=== PATIENT | female | born 1985 | race African-American/Black ===

== ENCOUNTER 2025-08-11 10:20 | Emergency (ER) | payer MEDICAID, OTHER ==
[~2025-08-11] VITALS: Ht 160 cm; Wt 93.2 kg
--- NOTE | 2025-08-11 10:44 | ED.PDOC ---
History of Present Illness HPI Comments This is a 40 year old female presenting to the ED with chief complaint of high blood pressure. Patient reports that she has been experiencing more elevated than usual blood pressure over the past 3 days with associated bilateral leg swelling for the first 2 days before resolving. Patient relays that she has had increased salt intake due to the holidays, but has continued to take her Amlodipine and Hydrochlorothiazide daily. Patient notes she took her medication today and at home her last BP was 159/103. Patient denies any chest pain, SOB, dizziness, N/V, fever, headache, or syncope. Chief Complaint: High Blood Pressure Time Seen by MD: 10:31 Primary Care Provider: DR EDWARDS Reviewed Notes: Nurses Notes, Medications, Allergies Allergies: Uncoded Allergies: PHENTAMINE (Allergy, Severe, 08/11/25) RASH, PALPITATIONS Information Source: Patient Mode of Arrival: Ambulatory Severity: Moderate Timing: Days Duration: Since onset Prehospital treatment: None Medication Refill: For: Hypertension Past Medical History PAST MEDICAL HISTORY: Asthma, DM, HTN Surgical History: Denies all surgeries MAIL DISTRIBUTION CLERK History: No Pertinent MAIL DISTRIBUTION CLERK History Family History Family History: Reviewed,noncontributory to illness Social History Smoker: Non-Smoker Alcohol: Denies ETOH Use Drugs: Denies Drug Use Lives In: Home Constitutional: denies: chills, diaphoresis, fatigue, fever, malaise, sweats, weakness, others EENTM: denies: blurred vision, double vision, ear bleeding, ear discharge, ear drainage, ear pain, ear ringing, eye pain, eye redness, hearing loss, mouth pain, mouth swelling, nasal discharge, nose bleeding, nose congestion, nose pain, photophobia, tearing, throat pain, throat swelling, voice changes, others Respiratory: denies: cough, hemoptysis, orthopnea, SOB at rest, shortness of breath, SOB with excertion, stridor, wheezing, others Cardiovascular: reports: edema; denies: chest pain, dizzy spells, diaphoresis, Dyspnea on exertion, irregular heart beat, left arm pain, lightheadedness, palpitations, PND, syncope, others Gastrointestinal: denies: abdomen distended, abdominal pain, blood streaked bowels, constipated, diarrhea, dysphagia, difficulty swallowing, hematemesis, melena, nausea, poor appetite, poor fluid intake, rectal bleeding, rectal pain, vomiting, others Genitourinary: denies: abnormal vagina bleeding, burning, dyspareunia, dysuria, flank pain, frequency, hematuria, incontinence, pain, , vagina discharge, urgency, others Neurological: denies: dizziness, fainting, headache, left sided numbness, left sided weakness, numbness, paresthesia, pre-existing deficit, right sided numbness, right sided weakness, seizure, speech problems, tingling, tremors, weakness, others Musculoskeletal: denies: back pain, gout, joint pain, joint swelling, muscle pain, muscle stiffness, neck pain, others Integumetry: denies: bruises, change in color, change in hair/nails, dryness, laceration, lesions, lumps, rash, wounds, others Allergic/Immunocompromised: denies: Difficulty Healing, Frequent Infections, Hives, Itching, others Hematologic/Lymphatic: denies: anemia, blood clots, easy bleeding, easy bruising, swollen glands, others Endocrine: denies: excessive hunger, excessive sweating, excessive thirst, excessive urination, flushing, intolerance to cold, intolerance to heat, unexplained weight gain, unexplained weight loss, others Psychiatric: denies: anxiety, bipolar disorder, depression, hopeless, panic disorder, schizophrenia, sleepless, suicidal, others All Other Systems: Reviewed and Negative Physical Exam General Appearance: No Apparent Distress, Normal HEENT: Normal ENT Inspection, Pharynx Normal, TMs Normal Neck: Full Range of Motion, Non-Tender, Normal, Normal Inspection Respiratory: Chest Non-Tender, Lungs Clear, No Accessory Muscle Use, No Respiratory Distress, Normal Breath Sounds Cardiovascular: No JVD, No Murmur, No Gallop, Normal Peripheral Pulses, Regular Rate/Rhythm, Other (trace lower extremity edema) Breast Exam: Deferred Gastrointestinal: No Organomegaly, Non Tender, No Pulsatile Mass, Normal Bowel Sounds, Soft Genitalia: Deferred Pelvic: Deferred Rectal: Deferred Extremities: No calf tenderness, Normal capillary refill, Normal inspection, Normal range of motion, Non-tender, No pedal edema Musculoskeletal : Apperance: Normal Neurologic: Alert, fishing manager II-XII nml as Tested, No Motor Deficits, Normal Affect, Normal Mood, No Sensory Deficits Cerebellar Function: Normal Reflexes: Normal Skin: Dry, Normal Color, Warm Lymphatic: No Adenopathy Was a procedure done? Was a procedure done?: No Differential Dx Considerations may include: Pulmonary vascular congestion vs new onset heart failure vs increased salt intake X-Ray, Labs, Meds, VS Vital Signs Date Time Temp Pulse Resp B/P (MAP) Pulse Ox O2 Delivery O2 Flow Rate FiO2 08/11/25 12:12 98.3 73 16 143/86 (105) 100 98.3 08/11/25 10:22 98.0 84 15 143/96 98 98.0 Lab Test 08/11/25 10:53 Range/Units White Blood Count 7.2 4.4-10.8 10^3/uL Red Blood Count 5.26 H 4.0-5.20 10^6/uL Hemoglobin 10.0 L 12.2-16.2 g/dL Hematocrit 33.0 L 36.0-46.0 % Mean Corpuscular Volume 62.8 L 80.0-100.0 fL Mean Corpuscular Hemoglobin 19.1 L 28.0-32.0 pg Mean Corpuscular Hemoglobin Concent 30.4 L 32.0-36.0 g/dL Red Cell Distribution Width 17.5 H 11.8-14.3 % Platelet Count 429 140-450 10^3/uL Mean Platelet Volume 7.8 6.9-10.8 fL Neutrophils (%) (Auto) 55.8 37.0-80.0 % Lymphocytes (%) (Auto) 32.9 10.0-50.0 % Monocytes (%) (Auto) 6.2 0.0-12.0 % Eosinophils (%) (Auto) 4.0 0.0-7.0 % Basophils (%) (Auto) 1.1 0.0-2.0 % Neutrophils # (Auto) 4.0 1.6-8.6 10 ^3/uL Lymphocytes # (Auto) 2.4 0.4-5.4 10 ^3/uL Monocytes # (Auto) 0.5 0-1.3 10 ^3/uL Eosinophils # (Auto) 0.3 0-0.8 10 ^3/uL Basophils # (Auto) 0.1 0-0.2 10 ^3/uL Nucleated Red Blood Cells 0.2 % Platelet Estimate Pending Sodium Level 139 136-145 mmol/L Potassium Level 3.3 L 3.5-5.1 mmol/L Chloride Level 101 98-107 mmol/L Carbon Dioxide Level 30 20-31 mmol/L Anion Gap 8 5-15 Blood Urea Nitrogen 6 L 9-23 mg/dL Creatinine 0.66 0.550-1.02 mg/dL Glomerular Filtration Rate Calc 113 >90 mL/min BUN/Creatinine Ratio 9.1 L 10.0-20.0 Serum Glucose 97 74-106 mg/dL Calcium Level 9.7 8.7-10.4 mg/dL Total Bilirubin 1.0 0.2-1.0 mg/dL Aspartate Amino Transferase (AST) 18 13-40 U/L Alanine Aminotransferase (ALT) 14 7-40 U/L Alkaline Phosphatase 114 46-116 U/L Troponin I High Sensitivity 16 </=34 ng/L B-Type Natriuretic Peptide 16.32 0-100 pg/mL Total Protein 8.4 H 5.7-8.2 g/dL Albumin 4.7 3.2-4.8 g/dL [place] [id number] Ph: [phone] DIAGNOSTIC IMAGING Diagnostic Imaging Report : [id number] Signed PATIENT: TOMMY BOOTHEACCT: [id number] UNIT: [id number] : 1985 LOC: ER ROOM / BED: / AGE / SEX: 40 / F ADM STATUS: REG ER SERVICE 1047 ORDERING PHYSICIAN: MELANIA MAS MD PROCEDURE(s): CXR1 - CHEST XRAY 1 VIEW REASON: peripheral edema, eval for cardiomegaly ORDER NUMBER(s): [id number], ACCESSION NUMBER(s): [id number] CHEST RADIOGRAPH Indication: peripheral edema, eval for cardiomegaly Technique: Single frontal view of the chest was obtained COMPARISON: None FINDINGS: Lines and Tubes: None Lungs: Increased interstital prominence. This may represent pulmonary vascular congestion and/or viral pneumonia. Pleura: No effusion.No pneumothorax. Cardiomediastinal contours: Unremarkable Bones: Unremarkable IMPRESSION: Increased interstital prominence. This may represent pulmonary vascular congestion and/or viral pneumonia. ATED BY: DELIO SALINAS MD DICTATED DATE/TIME: 08/11/25 1130 SIGNED BY: DELIO SALINAS MD SIGNED DATE/TIME: 08/11/251129 CC: Images Reviewed?: Images reviewed and evaluated by me Time of 1ST Reevaluation: 11:31 Reevaluation 1ST: Improved Patient Education/Counseling: Diagnosis, Treatment Family Education/Counseling: No Family Present SEPSIS Sepsis Screen Date sepsis recognized/suspect: Aug 11, 2025 Time Sepsis recognized/suspect: 1024 Recent Procedure: No On Antibiotic Therapy: No Respiratory Rate >20: No Heart Rate >90: No Temp<36 C (96.8 F) or >38.3 C: No SBP <90 or MAP <65 mmHG: No New Acute Mental Status Change: No Is the patient on CPAP, BIPAP,: No Physician Orders Complete Blood Count (08/11/25 10:47) Chest Xray 1 View (08/11/25 10:47) Rbc Morphology (08/11/25 10:53) Vital Signs Date Time Temp Pulse Resp B/P (MAP) Pulse Ox O2 Delivery O2 Flow Rate FiO2 08/11/25 12:12 98.3 73 16 143/86 (105) 100 98.3 08/11/25 10:22 98.0 84 15 143/96 98 98.0 Laboratory Tests Test 08/11/25 10:53 White Blood Count 7.2 10^3/uL (4.4-10.8) Departure 1 Departure Time of Disposition: 10:58 (40-year-old female with past medical history of hypertension presenting for evaluation of increase peripheral edema and increased blood pressure over the past 3 days. Symptoms all started after the holidays, suspect that the patient likely had increased salt intake over the past several days. Concerned about her elevated blood pressure, however, upon arrival has normal blood pressure. Given reports of increased lower extremity edema consider your new onset heart failure. BNP, troponin within normal limits. Chest x-ray shows possible pulmonary vascular congestion versus pneumonitis. Patient's BNP is within normal limits, patient with no known history of heart failure, does not seem consistent with new onset heart failure. Metabolic panel with no evidence of acute kidney insufficiency or renal dysfunction related to peripheral edema. Liver function tests with no evidence of critical liver function test abnormality contributing to fluid retention. Patient is hemodynamically stable here. Has been provided reassurance on today's workup. Advised to continue taking her medications) continue taking a log of her blood pressure. If blood pressure remains elevated she should follow up with primary care doctor to make adjustments in her medications.) Impression: Primary Impression: Peripheral edema Additional Impression: Hypertension Disposition: HOME / SELF CARE / HOMELESS Condition: Stable Additional Instructions: You were evaluated today for concerns of elevated blood pressure. Your blood pressure while in the emergency department was not critically elevated. Your labs show no evidence of any new onset heart failure, kidney issues or liver she has not could be causing your symptoms over the past few days may have been related to increased salt intake. Please continue taking your blood pressure regularly and keep a log of the so that you can share this with your primary care doctor. Discharged With: Self Critical Care Note Critical Care Time?: No Stability Stability form required: No Heart Score Heart Score: Heart Score Response (Comments) Value History N/A 0 EKG N/A 0 Age N/A 0 Risk Factors N/A 0 Troponin N/A 0 Total 0 I personally scribed for MELANIA MAS MD ([email or web address]) on 08/11/25 at 10:44. Electronically submitted by Miquel Kincaid ([email or web address]). I personally scribed for MELANIA MAS MD ([email or web address]) on 08/11/25 at 11:42. Electronically submitted by Miquel Kincaid ([email or web address]). MELANIA MAS MD Aug 11, 2025 10:44
[2025-08-11 11:16] LABS: Hemoglobin 10.0 g/dL (12.2-16.2); Nucleated Red Blood Cells % 0.2 %
[2025-08-11 11:17] LABS: Hematocrit 33.0 % (36.0-46.0); Mean Corpuscular Hemoglobin 19.1 pg (28.0-32.0); Mean Corpuscular Volume 62.8 fL (80.0-100.0)
--- NOTE | 2025-08-11 11:32 | DVH ---
CHEST RADIOGRAPH Indication: peripheral edema, eval for cardiomegaly Technique: Single frontal view of the chest was obtained COMPARISON: None FINDINGS: Lines and Tubes: None Lungs: Increased interstital prominence. This may represent pulmonary vascular congestion and/or viral pneumonia. Pleura: No effusion.No pneumothorax. Cardiomediastinal contours: Unremarkable Bones: Unremarkable IMPRESSION: Increased interstital prominence. This may represent pulmonary vascular congestion and/or viral pneumonia.
[2025-08-11 11:39] LABS: Alanine Aminotransferase 14 U/L (7-40); Alkaline Phosphatase 114 U/L (46-116); Anion Gap 8 (5-15); BUN/Creatinine Ratio 9.1 (10.0-20.0); Calcium 9.7 mg/dL (8.7-10.4); Carbon Dioxide 30 mmol/L (20-31); Chloride 101 mmol/L (98-107); Glucose 97 mg/dL (74-106); Sodium 139 mmol/L (136-145)
[2025-08-11 11:40] LABS: Albumin 4.7 g/dL (3.2-4.8); Bilirubin, Total 1.0 mg/dL (0.2-1.0)
[2025-08-11 11:50] LABS: Blood Urea Nitrogen 6 mg/dL (9-23); Potassium 3.3 mmol/L (3.5-5.1); Total Protein 8.4 g/dL (5.7-8.2)
[2025-08-11 12:12] VITALS: BP 143/86; PULSE 73; RESP 16; TEMP 98.3; O2SAT 100
[2025-08-11 12:50] LABS: Ovalocytes FEW; Stomatocytes Few
== END 2025-08-11 13:07 | disposition home or self-care (01) ==
LOC: ER 10:22
DX: I10 Essential (primary) hypertension (principal); R60.0 Localized edema; J45.909 Unspecified asthma, uncomplicated; E11.9 Type 2 diabetes mellitus without complications
CPT/HCPCS: 36415; 71045; 80053; 83880; 84484; 85025